=== PATIENT | female | born 1965 ===

== ENCOUNTER 2022-04-24 14:21 | Emergency (ER) | payer SELFPAY ==
--- NOTE | 2022-04-24 16:34 | XRay Report ---
XR elbow 2V LT, XR shoulder 2+V LT INDICATION / CLINICAL INFORMATION: PAIN. COMPARISON: None available. FINDINGS: No acute fracture. Normal alignment. Joint spaces are preserved. No destructive osseous lesion or s uspicious periosteal reaction. Impression: 1.No acute fracture. Signer Name: Delbert Chaudhary MD Signed: 04/24/2022 4:29 PM Workstation Name: [email or web address]
[2022-04-24] MEDS ORDERED: IBUPROFEN 800 MG TAB PO ONE (16:42)
--- NOTE | 2022-04-24 16:42 | Emergency Department Report ---
ED General Adult HPI - General Chief complaint: Fall Stated complaint: BACK PAIN PUI?: No Time Seen by Provider: 04/24/22 16:03 Source: patient Mode of arrival: Ambulatory Limitations: No Limitations - History of Present Illness Initial comments: pt was knocked down by a fork lift at work c/o,back pain left shoulder pain and elbow pain. NO LOC AMBULATORY WITH FULL ROM IN ER -: Sudden Location: upper extremity Severity scale (0 -10): 2 Quality: aching Consistency: intermittent Improves with: immobilization Worsens with: movement Associated Symptoms: denies other symptoms Treatments Prior to Arrival: none - Related Data Previous Rx's Medication Instructions Recorded Last Taken Type Ibuprofen [Motrin] 800 mg PO Q8HR PRN #30 tablet 04/24/22 Unknown Rx Allergies Allergy/AdvReac Type Severity Reaction Status Date / Time No Known Allergies Allergy Unverified 04/24/22 14:27 ED Review of Systems ROS: Stated complaint: BACK PAIN Other details as noted in HPI Comment: All other systems reviewed and negative ED Past Medical Hx - Past Medical History Previous Medical History?: No - Surgical History Past Surgical History?: No - Family History Family history: no significant - Social History Smoking Status: Never Smoker Substance Use Type: None - Medications Home Medications: Home Medications Medication Instructions Recorded Confirmed Last Taken Type Ibuprofen [Motrin] 800 mg PO Q8HR PRN #30 tablet 04/24/22 Unknown Rx ED Physical Exam - General Limitations: No Limitations General appearance: alert, in no apparent distress - Head Head exam: Present: atraumatic, normocephalic - Eye Eye exam: Present: normal appearance - ENT ENT exam: Present: mucous membranes moist - Neck Neck exam: Present: normal inspection - Respiratory Respiratory exam: Present: normal lung sounds bilaterally. Absent: respiratory distress - Cardiovascular Cardiovascular Exam: Present: regular rate, normal rhythm. Absent: systolic murmur, diastolic murmur, rubs, gallop - GI/Abdominal GI/Abdominal exam: Present: soft, normal bowel sounds - Extremities Exam Extremities exam: Present: normal inspection - Back Exam Back exam: Present: normal inspection - Neurological Exam Neurological exam: Present: alert, oriented X3 - Psychiatric Psychiatric exam: Present: normal affect, normal mood - Skin Skin exam: Present: warm, dry, intact, normal color. Absent: rash ED Course Vital Signs 04/24/22 14:26 Temperature 98.5 F Pulse Rate 74 Respiratory 18 Rate Blood Pressure 134/74 [Left] O2 Sat by Pulse 99 Oximetry ED Medical Decision Making - Radiology Data Radiology results: report reviewed, image reviewed NAP - Medical Decision Making XRAY NEG MOTRIN FOR PAIN FULL ROM DC HOME WITH DC PLAN OF CARE VERBALIZES UNDERSTANDING OF PLAN OF CARE INCLUDING/DIET/MEDS/ACTIVITY Vital Signs 04/24/22 14:26 Temperature 98.5 F Pulse Rate 74 Respiratory 18 Rate Blood Pressure 134/74 [Left] O2 Sat by Pulse 99 Oximetry - Differential Diagnosis RO FX Critical care attestation.: If time is entered above; I have spent that time in minutes in the direct care of this critically ill patient, excluding procedure time. ED Disposition Clinical Impression: Contusion Qualifiers: Encounter type: initial encounter Contusion area: upper arm Disposition: HOME / SELF CARE / HOMELESS Is pt being admited?: No Does the pt Need Aspirin: No Condition: Stable Instructions: Contusion Additional Instructions: REST ICE ELEVATE MED ORDERED FOR PAIN FOLLOW UP WITH PCP ON WEDNESDAY REFERRAL BELOW Prescriptions: Ibuprofen [Motrin] 800 mg PO Q8HR PRN #30 tablet PRN Reason: Pain, Moderate (4-6) Referrals: EZEQUIEL YUEN MD [Primary Care Provider] - 3-5 Days Forms: Work/School Release Form(ED) Time of Disposition: 16:42
[2022-04-24 17:07] VITALS: BP 133/81
== END 2022-04-24 17:05 | disposition home or self-care (01) ==
LOC: ED 14:21
DX: S40.022A Contusion of left upper arm, initial encounter (principal); W19.XXXA Unspecified fall, initial encounter; Y93.89 Activity, other specified; Y92.89 Other specified places as the place of occurrence of the external cause; Y99.8 Other external cause status
CPT/HCPCS: 99283